=== PATIENT | female | born 1950 | race Caucasian/White ===

== ENCOUNTER 2019-06-06 04:55 | Emergency (ER) | payer MEDICARE ==
--- NOTE | 2019-06-06 05:04 | ER Report ---
History and Physical Time Seen By MD: 05:00 Hx. of Stated Complaint: BAD ABDOMINAL CRAMPING THAT STARTED AROUND 0100 THAT LED TO DIARRHEA. HPI/ROS CHIEF COMPLAINT: abdominal pain, diarrhea HISTORY OF PRESENT ILLNESS: This is a 68 year old female. She is traveling from [place] to [place]. Has been in the car for a couple of days now. She started having some abdominal cramping, across the mid abdomen. Then stopped up at the rest stop at the [facility] and had diarrhea. She has had pain and diarrhea in the past, as well as dry heaves, that has been worked up and never found a cause. Her and daughter are not ill. She has no fevers. She may have irritable bowel syndrome, and is on Amytriptyline for this. She is not sure if any bad food exposure. Diet has been different with the constant travel. Denies any dysuria or frequency. No fevers or chills. REVIEW OF SYSTEMS: Respiratory: No cough, no dyspnea. Cardiovascular: No chest pain, no palpitations. Gastrointestinal: As above. Genitourinary: As above. Musculoskeletal: No musculoskeletal pain. Allergies: Coded Allergies: Penicillins (Verified Allergy, Severe, HIVES, 06/06/19) Home Meds Active Scripts Hydrocodone Bit/Acetaminophen (HYDROCODON-ACETAMINOPHEN 5-325) 1 Each Tablet, 1 EACH PO Q4H PRN for PAIN, #12 TAB 0 Refills Prov:MAMI DU MD 06/06/19 Ondansetron 4 Mg Odt (ONDANSETRON 4 MG ODT) 4 Mg Tab.rapdis, 4 MG PO Q6H PRN for NAUSEA/VOMITING, #20 TAB 0 Refills Prov:MAMI DU MD 06/06/19 Reviewed Nurses Notes: Yes Constitutional Vital Sign - Last 24 Hours 06/06/19 06/06/19 06/06/19 06/06/19 04:55 04:58 05:00 05:10 Temp 97.6 Pulse 96 94 92 Resp 16 B/P (MAP) 120/58 (78) 120/58 105/73 (84) Pulse Ox 90 90 85 O2 Delivery Room Air 06/06/19 06/06/19 06/06/19 06/06/19 05:25 05:30 05:40 05:55 Pulse 94 106 97 B/P (MAP) 137/69 (91) Pulse Ox 91 75 94 06/06/19 06/06/19 06:00 06:10 Pulse 95 B/P (MAP) 107/92 (97) Pulse Ox 94 Physical Exam General Appearance: The patient is alert. No acute distress. Non-toxic in appearance. Eyes: Pupils are equal, round. No pallor, injection or icterus. ENT: Mucous membranes are moist. Normal oral mucosa. Posterior oropharynx is normal. Neck: Supple and non tender. Respiratory: Lungs are clear to auscultation. Cardiovascular: Regular rate and rhythm. No murmurs, gallops or rubs. Normal capillary refill. Gastrointestinal: Abdomen is soft, discomfort across the mid abdomen. Nondistended. No rebound or guarding. Normal active bowel sounds. No costovertebral angle tenderness with percussion. Neurological: Alert and oriented x3. No focal neurologic deficits Skin: Warm and dry. Musculoskeletal: Extremities are nontender. DIFFERENTIAL DIAGNOSIS: After history and physical exam, differential diagnosis was considered for abdominal pain. Having diarrhea, cramping pain, nausea. Could be gastroenteritis, food poisoning, or irritable bowel flare-up. Medical Decision Making ED Course/Re-evaluation ED Course After discussion with the patient and exam, she feels that this is likely what she has experienced in the past and is feeling better. She would like to have us give her some Zofran and she will continue traveling on to [place]. As we were getting ready to discharge her, she worsened again. We did talk about doing a workup. She and her are not sure as she has had many workups in the past. I gave her Zofran and a Lortab. She went to the bathroom again and felt better. She would like to continue on, so gave Zofran and Lortab, with instructions to stop for re-evaluation again if needed. Decision to Disposition Date: Jun 06, 2019 Decision to Disposition Time: 05:21 Depart Departure Latest Vital Signs Vital Signs Date Time Temp Pulse Resp B/P (MAP) Pulse Ox O2 Delivery O2 Flow Rate FiO2 06/06/19 06:10 95 94 06/06/19 06:00 107/92 (97) 06/06/19 04:58 97.6 16 Room Air Impression: Primary Impression: Diarrhea Additional Impression: Nausea & vomiting Condition: Improved Disposition: HOME OR SELF-CARE New Scripts Hydrocodone Bit/Acetaminophen (HYDROCODON-ACETAMINOPHEN 5-325) 1 Each Tablet 1 EACH PO Q4H PRN for PAIN, #12 TAB 0 Refills Prov: MAMI DU MD 06/06/19 Ondansetron 4 Mg Odt (ONDANSETRON 4 MG ODT) 4 Mg Tab.rapdis 4 MG PO Q6H PRN for NAUSEA/VOMITING, #20 TAB 0 Refills Prov: MAMI DU MD 06/06/19 Patient Instructions: Acute Diarrhea (ED) Additional Instructions: Your diarrhea and the nausea could be due to irritable bowel syndrome with your history of these episodes in the past. You could also have a viral process starting or have been exposed to some bad food or water. These should pass and we recommend symptomatic treatment. Take Zofran 4mg, one every 6hours as needed for nausea or vomiting. You can use over the counter Immodium or Kayopectate as needed for diarrhea. Make sure to drink some extra fluids as well which can be difficult when traveling. If symptoms worsen, we would recommend seeking further medical evaluation. Problem Qualifiers Primary Impression: Diarrhea Diarrhea type: unspecified type Qualified Codes: R19.7 - Diarrhea, unspecified Additional Impression: Nausea & vomiting Vomiting type: unspecified Vomiting Intractability: non-intractable Qualified Codes: R11.2 - Nausea with vomiting, unspecified MAMI DU MD Jun 06, 2019 05:04
[2019-06-06] MEDS ORDERED: ONDANSETRON 4 MG ODT TH SL ONE (05:25)
[2019-06-06] MEDS ORDERED: ONDA4TAB9 PO (05:27)
[2019-06-06] MEDS ORDERED: APAP/HYDROCODONE 325/5 TAB PO ONE (05:35)
[2019-06-06] MEDS ORDERED: ONDANSETRON 4 MG ODT TABDP SL ONE (05:35)
[2019-06-06 06:00] VITALS: BP 107/92
[2019-06-06] MEDS ORDERED: ACET/HYDROC 5/325MG TH ER ONLY 2 TAB/BOTTLE PO ONE (06:15)
[2019-06-06] MEDS ORDERED: LOR5/325 PO (06:16)
== END 2019-06-06 06:26 | disposition home or self-care (01) ==
LOC: ER 05:12
DX: R19.7 Diarrhea, unspecified (principal); R11.2 Nausea with vomiting, unspecified
CPT/HCPCS: 99283; A9270; Q0162; S0119

== ENCOUNTER → 2019-06-06 | Outpatient (CLI) | payer MEDICARE ==
[~2019-06-06] MED LIST: LOR5/325 PO; ONDA4TAB9 PO
== END ==
LOC: AMB 04:18
PROVIDERS: ATTEND Nurse Practitioner
DX: R11.2 Nausea with vomiting, unspecified (principal); R10.9 Unspecified abdominal pain
CPT/HCPCS: A0425; A0429